=== PATIENT | male | born 1950 | race Caucasian/White ===

== ENCOUNTER → 2023-12-16 08:25 | Outpatient (CLI) | payer OTHER, SELFPAY ==
--- NOTE | 2023-12-16 08:30 | DI.RAD.S_ITS ---
PROCEDURE: XR SHOULDER LT MIN 2V INDICATIONS: arthritis TECHNIQUE: 3 views of the shoulder were acquired. COMPARISON: None. FINDINGS: Bones: No fractures or dislocations. No suspicious bony lesions. Visualized ribs appear intact. Acromioclavicular joint space narrowing with osteophytosis. Soft tissues: No suspicious soft tissue calcifications. IMPRESSION: Mild acromioclavicular osteoarthritis. Dictated by: Carrington Lara M.D. on 12/16/2023 at 12:04 Approved by: Carrington Lara M.D. on 12/16/2023 at 12:05
--- NOTE | 2023-12-16 08:30 | DI.RAD.S_ITS ---
PROCEDURE: XR SHOULDER RT MIN 2V INDICATIONS: arthritis TECHNIQUE: 3 views of the shoulder were acquired. COMPARISON: None. FINDINGS: Bones: No fractures or dislocations. No suspicious bony lesions. Visualized ribs appear intact. Moderate acromioclavicular and glenohumeral degenerative narrowing. No erosions. Small periarticular osteophytes. Soft tissues: No suspicious soft tissue calcifications. IMPRESSION: Arthritic changes at the acromioclavicular and glenohumeral joint spaces. Dictated by: Cat Carrasquillo M.D. on 12/16/2023 at 13:45 Approved by: Cat Carrasquillo M.D. on 12/16/2023 at 13:46
== END ==
PROVIDERS: Referring Provider Chiropractor; Visit Provider Chiropractor
DX: M19.012 Primary osteoarthritis, left shoulder (principal); M24.811 Other specific joint derangements of right shoulder, not elsewhere classified
CPT/HCPCS: 73030